=== PATIENT | female | born 1960 | race American Indian/Alaskan Native ===

== ENCOUNTER 2023-12-18 18:39 | Inpatient (IN) | payer MEDICAID ==
[~2023-12-18] VITALS: Ht 160 cm; Wt 59.1 kg
[~2023-12-18 18:39] MED LIST: ALBU18HF2 INH; AMPH30TA3 PO; EPIN0.3P8 IM; FLUT1DIS4 INH; HYDR25TA4 PO; PRIM250T8 CORPAK; PRIM50TA PO
[2023-12-18] MEDS: metoclopramide 5 mg/ml inj IV ONE (19:32)
[2023-12-18] MEDS: normal saline 1000ml 1,000 ML IV ONE (21:09)
[2023-12-18 21:31] LABS: BASOPHILS % (AUTO) 0.5 % (0-1); EOSINOPHILS # (AUTO) 0.1 X10'3 (0-0.9); EOSINOPHILS % (AUTO) 1.2 % (0-6); HEMATOCRIT 45.9 % (35.0-45.0); HEMOGLOBIN 15.8 g/dl (12.0-16.0); LYMPHOCYTES # (AUTO) 2.9 X10'3 (1.1-4.8); LYMPHOCYTES % (AUTO) 32.1 % (21-51); MEAN CORPUSCULAR HEMOGLOBIN 33.5 PG (27.0-31.0); MEAN CORPUSCULAR HGB CONC 34.4 g/dL (33.0-36.5); MEAN CORPUSCULAR VOLUME 97.3 FL (78-98); MEAN PLATELET VOLUME 9.7 FL (7.4-10.4); MONOCYTES # (AUTO) 0.8 X10'3 (0-0.9); MONOCYTES % (AUTO) 8.6 % (2-12); NEUTROPHILS # (AUTO) 5.3 X10'3 (1.8-7.7); NEUTROPHILS % (AUTO) 57.6 % (42-75); PLATELET COUNT 156 X10'3 (140-440); RED BLOOD COUNT 4.72 X10'6 (4.20-5.60); RED CELL DISTRIBUTION WIDTH 15.6 % (11.5-14.5); WHITE BLOOD COUNT 9.1 X10'3 (4.5-11.0)
[2023-12-18 21:40] LABS: APTT 27 SECONDS (22-32); PROTHROMBIN TIME 10.6 SECONDS (9.0-12.0)
[2023-12-18] MEDS ORDERED: ONDA-245 PO (21:46)
[2023-12-18] MEDS ORDERED: LIDO1ADH67 TOP (21:46)
[2023-12-18] MEDS ORDERED: LINA145C PO (21:46)
[2023-12-18] MEDS ORDERED: SENN-137 PO (21:46)
[2023-12-18] MEDS ORDERED: CILO100T3 PO (21:46)
[2023-12-18] MEDS ORDERED: PREG150C47 PO (21:46)
[2023-12-18] MEDS ORDERED: NICO4GUM29 PO (21:46)
[2023-12-18] MEDS ORDERED: DOCU-392 PO (21:46)
[2023-12-18] MEDS ORDERED: CYCL-1 PO (21:46)
[2023-12-18] MEDS ORDERED: [UNRECOGNIZED DRUG - CODE] PO (21:46)
[2023-12-18 21:51] LABS: ALBUMIN 3.1 G/DL (3.4-5.0); ANION GAP 12 (8-16); BLOOD UREA NITROGEN 7 MG/DL (7-18); BUN/CREATININE RATIO 9.2 (10.0-20.0); CALCIUM 8.4 MG/DL (8.5-10.1); CHLORIDE 105 MMOL/L (99-107); CREATININE 0.76 MG/DL (0.40-0.90); GLUCOSE 87 MG/DL (70-104); MAGNESIUM 2.3 MG/DL (1.5-2.4); POTASSIUM 3.5 MMOL/L (3.5-5.1); PRO BRAIN NATRIURETIC PEPTIDE 678 PG/ML (0-125); SODIUM 139 MMOL/L (135-145); TOTAL CARBON DIOXIDE 21.9 MMOL/L (24-32); eCRCL 63 ML/MIN; eGFR 77 ML/MIN
[2023-12-18 21:56] LABS: BILIRUBIN,URINE NEGATIVE (Neg); CLARITY,URINE CLEAR (Clear); COLOR,URINE YELLOW (Yellow); GLUCOSE, URINE NEGATIVE (Neg); KETONES,URINE NEGATIVE (Neg); LEUKOCYTE ESTERASE ,URINE NEGATIVE (Neg); NITRITES, URINE NEGATIVE (Neg); OCCULT BLOOD,URINE NEGATIVE (Neg); PH,URINE 5.5 (4.8-8.0); PROTEIN,URINE NEGATIVE (Neg); UROBILINOGEN,URINE 0.2 E.U/dL (0.2-1.0)
[2023-12-18 21:57] LABS: UA COLLECTION TYPE CLN CATCH MIDSTREAM
[2023-12-18] MEDS ORDERED: morphine 2 MG/ML inj. syringe IV PRN (22:20)
[2023-12-18] MEDS ORDERED: acetaminophen 325mg tablet PO PRN (22:20)
[2023-12-18] MEDS ORDERED: magnesium sulf-water 4G/100mL 100 ML IV PRN (22:20)
[2023-12-18] MEDS ORDERED: haloperidol lactate 5mg/ml inj IM PRN (22:20)
[2023-12-18] MEDS ORDERED: mag hydrox/Alum hydrox/simeth 30ml oral suspension PO PRN (22:20)
[2023-12-18] MEDS ORDERED: LORazepam 2 mg/ml vial IV PRN (22:20)
[2023-12-18] MEDS ORDERED: magnesium sulf-water 2g/50mL 50 ML IV PRN (22:20)
[2023-12-18] MEDS ORDERED: PERFLUTREN PROTEIN-A MICROSPHR (Optison) 0.22 MG/ML 3ML VIAL IV PRN (22:20)
[2023-12-18] MEDS ORDERED: magnesium Cl slow-release 64mg tablet PO PRN (22:20)
[2023-12-18] MEDS ORDERED: potassium Cl 40MEQ/1/2NS 520ml 520 ML IV PRN (22:20)
[2023-12-18] MEDS ORDERED: ondansetron/PF 4mg/2ml inj IV PRN (22:20)
[2023-12-18] MEDS ORDERED: potassium Cl 20 mEq SR tablet PO PRN (22:20)
[2023-12-18] MEDS ORDERED: HYDROcodone/acetaminophen 5mg/325mg tablet PO PRN (22:20)
[2023-12-18] MEDS ORDERED: magnesium hydroxide 30ml (MOM) UD suspension PO PRN (22:20)
[2023-12-18] MEDS ORDERED: dextrose 50%-water 50ml dispensing syringe IV PRN (22:20)
[2023-12-18] MEDS: nicotine 14mg patch - 24hr TD ONE (22:48)
[2023-12-18] MEDS: pregabalin 75mg capsule PO ONE (22:48)
[2023-12-18] MEDS: QUEtiapine 25mg tablet PO ONE (22:48)
[2023-12-18 22:58] LABS: ALANINE AMINOTRANSFERASE 28 U/L (12-78); ALBUMIN 3.1 G/DL (3.4-5.0); ALBUMIN/GLOBULIN RATIO 0.9 (1.1-1.5); ALKALINE PHOSPHATASE 75 IU/L (46-116); ASPARTATE AMINO TRANSFERASE 21 U/L (10-37); BILIRUBIN,DIRECT 0.1 MG/DL (0-0.3); BILIRUBIN,TOTAL 0.3 MG/DL (0.1-1.0); TOTAL PROTEIN 6.5 G/DL (6.4-8.2)
[2023-12-19] VITALS (15 sets, daily range): BP systolic 106–134; BP diastolic 63–85; PULSE 87–117; RESP 16–18; TEMP 97.8–98.7; O2SAT 95–100
[2023-12-19 00:33] LABS: CHOL/HDL RATIO 3.3 (0.00-4.99); CHOLESTEROL 221 MG/DL (0-200); HDL CHOLESTEROL 67 MG/DL (35-60); LDL CHOLESTEROL 127 MG/DL (50-100); TRIGLYCERIDES 196 MG/DL (20-135)
[2023-12-19] MEDS ORDERED: nitroGLYCERIN 0.4mg SUBLingual tab SL PRN (01:10)
[2023-12-19] MEDS ORDERED: metoprolol tartrate 1mg/ml inj IV PRN (01:10)
[2023-12-19] MEDS ORDERED: aminophylline 250mg/10ml inj. IV PRN (01:10)
[2023-12-19] MEDS ORDERED: docusate sod 100mg capsule PO PRN (01:25)
[2023-12-19 02:53] LABS: BASOPHILS # (AUTO) 0.1 X10'3 (0-0.2); BASOPHILS % (AUTO) 0.8 % (0-1); EOSINOPHILS # (AUTO) 0.1 X10'3 (0-0.9); EOSINOPHILS % (AUTO) 1.5 % (0-6); HEMATOCRIT 42.8 % (35.0-45.0); HEMOGLOBIN 14.5 g/dl (12.0-16.0); LYMPHOCYTES # (AUTO) 2.7 X10'3 (1.1-4.8); MEAN CORPUSCULAR HEMOGLOBIN 32.4 PG (27.0-31.0); MEAN CORPUSCULAR HGB CONC 33.7 g/dL (33.0-36.5); MEAN CORPUSCULAR VOLUME 96.2 FL (78-98); MEAN PLATELET VOLUME 9.2 FL (7.4-10.4); MONOCYTES # (AUTO) 0.6 X10'3 (0-0.9); MONOCYTES % (AUTO) 7.9 % (2-12); NEUTROPHILS # (AUTO) 3.6 X10'3 (1.8-7.7); NEUTROPHILS % (AUTO) 51.8 % (42-75); PLATELET COUNT 139 X10'3 (140-440); RED BLOOD COUNT 4.46 X10'6 (4.20-5.60); RED CELL DISTRIBUTION WIDTH 15.6 % (11.5-14.5)
[2023-12-19] MEDS: nicotine prolacrilex 4mg gum BC SCH (03:00)
[2023-12-19 03:11] LABS: ALBUMIN 2.8 G/DL (3.4-5.0); ANION GAP 6 (8-16); BLOOD UREA NITROGEN 8 MG/DL (7-18); CHLORIDE 108 MMOL/L (99-107); CHOL/HDL RATIO 3.4 (0.00-4.99); CHOLESTEROL 213 MG/DL (0-200); CREATININE 0.73 MG/DL (0.40-0.90); GLUCOSE 114 MG/DL (70-104); HDL CHOLESTEROL 63 MG/DL (35-60); LDL CHOLESTEROL 119 MG/DL (50-100); MAGNESIUM 2.1 MG/DL (1.5-2.4); POTASSIUM 3.4 MMOL/L (3.5-5.1); SODIUM 139 MMOL/L (135-145); TRIGLYCERIDES 128 MG/DL (20-135); eCRCL 65 ML/MIN; eGFR 81 ML/MIN
[2023-12-19] MEDS: cilostazol 50mg tablet PO SCH (07:00)
[2023-12-19] MEDS: thiamine 100mg/ml 2ml inj. IV SCH (08:00)
[2023-12-19] MEDS: aspirin 81mg, enteric-coated 1 TAB TABLET.DR PO SCH (08:00)
[2023-12-19] MEDS: K and/or MAG REPLACEMENT MC SCH (08:00)
[2023-12-19] MEDS: LINACLOTIDE PO SCH (08:00)
[2023-12-19] MEDS: cyclobenzaprine 10mg tablet PO SCH (08:00)
[2023-12-19] MEDS: docusate sod 100mg capsule PO SCH (08:00)
[2023-12-19] MEDS: regadenoson 0.4mg/5ml syringe IV PRN (09:23)
[2023-12-19 11:25] LABS: CREATINE KINASE 62 U/L (26-192); LIPASE 32 U/L (16-77); PHOSPHORUS 3.7 MG/DL (2.3-4.5)
[2023-12-19] MEDS: pregabalin 75mg capsule PO SCH (13:11)
[2023-12-19] MEDS: folic acid 1mg/0.2ml inj IV SCH (13:11)
[2023-12-19] MEDS: sennosides/docusate sodium tablet PO SCH (13:11)
[2023-12-19] MEDS: nicotine 14mg patch - 24hr TD ONE (14:41)
[2023-12-19] MEDS: LORazepam 2 mg/ml vial IV PRN (14:41)
[2023-12-19] MEDS: potassium Cl 20 mEq SR tablet PO PRN (16:24)
[2023-12-19] MEDS: atorvastatin 20mg tablet PO SCH (19:11)
[2023-12-20] VITALS (11 sets, daily range): BP systolic 95–119; BP diastolic 53–80; PULSE 96–111; RESP 14–16; TEMP 97.8–98; O2SAT 96–98
[2023-12-20 07:51] LABS: ALBUMIN 2.8 G/DL (3.4-5.0); ANION GAP 7 (8-16); BLOOD UREA NITROGEN 12 MG/DL (7-18); BUN/CREATININE RATIO 15.4 (10.0-20.0); CALCIUM 9.1 MG/DL (8.5-10.1); CHLORIDE 104 MMOL/L (99-107); CREATININE 0.78 MG/DL (0.40-0.90); GLUCOSE 165 MG/DL (70-104); MAGNESIUM 2.1 MG/DL (1.5-2.4); POTASSIUM 4.2 MMOL/L (3.5-5.1); SODIUM 138 MMOL/L (135-145); TOTAL CARBON DIOXIDE 26.6 MMOL/L (24-32); eCRCL 61 ML/MIN; eGFR 75 ML/MIN
[2023-12-20] MEDS: ipratropium/albuterol 3ml nebule NEB PRN (08:30)
[2023-12-20] MEDS ORDERED: heparin 1,000unit/ml 10ml vial 10 ML ONE (08:36)
[2023-12-20] MEDS ORDERED: midazolam 1 mg/ML 2ml injection ONE (08:36)
[2023-12-20] MEDS ORDERED: verapamil 2.5 mg/ml inj IV ONE ×2 (08:36→09:39)
[2023-12-20] MEDS ORDERED: iohexol 350 MG/ML 50ML vial IV ONE (08:36)
[2023-12-20] MEDS ORDERED: LIDOcaine 1% (10mg/ml) 2ml vial ONE (08:36)
[2023-12-20] MEDS ORDERED: fentaNYL/PF 50MCG/1 ML 2ML syringe ONE (08:36)
[2023-12-20] MEDS ORDERED: iohexol 350MG/ML 100ml bottle IV ONE ×2 (08:37→10:19)
[2023-12-20] MEDS ORDERED: nitroGLYCERIN 500mcg/5mL D5W 5 ML IV ONE ×2 (08:42→10:25)
[2023-12-20 09:11] LABS: BASOPHILS # (AUTO) 0.1 X10'3 (0-0.2); BASOPHILS % (AUTO) 0.6 % (0-1); EOSINOPHILS # (AUTO) 0.1 X10'3 (0-0.9); EOSINOPHILS % (AUTO) 1.1 % (0-6); HEMATOCRIT 46.9 % (35.0-45.0); HEMOGLOBIN 15.7 g/dl (12.0-16.0); LYMPHOCYTES # (AUTO) 2.6 X10'3 (1.1-4.8); LYMPHOCYTES % (AUTO) 29.6 % (21-51); MEAN CORPUSCULAR HEMOGLOBIN 32.2 PG (27.0-31.0); MEAN CORPUSCULAR HGB CONC 33.6 g/dL (33.0-36.5); MEAN CORPUSCULAR VOLUME 95.9 FL (78-98); MONOCYTES # (AUTO) 0.6 X10'3 (0-0.9); NEUTROPHILS # (AUTO) 5.4 X10'3 (1.8-7.7); NEUTROPHILS % (AUTO) 61.7 % (42-75); PLATELET COUNT 146 X10'3 (140-440); RED BLOOD COUNT 4.89 X10'6 (4.20-5.60); RED CELL DISTRIBUTION WIDTH 15.7 % (11.5-14.5); WHITE BLOOD COUNT 8.7 X10'3 (4.5-11.0)
[2023-12-20] MEDS ORDERED: heparin 25,000 UNIT/250ml bag 250 ML IV ONE (10:13)
[2023-12-20] MEDS ORDERED: clopidogrel 300mg tablet ONE (10:36)
[2023-12-20] MEDS ORDERED: aspirin 325mg tablet ONE (10:38)
[2023-12-20] MEDS ORDERED: CLOP-32 PO (14:19)
[2023-12-20] MEDS ORDERED: ATOR20TA66 PO (14:19)
[2023-12-20] MEDS ORDERED: ASPI81TA52 PO (14:19)
[2023-12-21] MEDS ORDERED: clopidogrel 75mg tablet PO SCH (08:00)
[2023-12-21] MEDS ORDERED: aspirin 81mg tab.chew PO SCH (08:30)
[2023-12-23] MEDS ORDERED: thiamine 100mg tablet PO SCH (08:00)
[2023-12-23] MEDS ORDERED: folic acid 1mg tablet PO SCH (08:00)
== END 2023-12-20 14:30 | disposition left against medical advice (07) | DRG 175 ==
LOC: ER 18:40 → ED HOLD 22:55 → ORTHO 4S 12-19 08:44
PROVIDERS: ADMIT Internal Medicine Pulmonary Disease; ATTEND Family Medicine
PROC: 027034Z Dilation of Coronary Artery, One Artery with Drug-eluting Intraluminal Device, Percutaneous Approach (ICD-10-PCS; principal; 2023-12-20)
PROC: 4A023N7 Measurement of Cardiac Sampling and Pressure, Left Heart, Percutaneous Approach (ICD-10-PCS; 2023-12-20)
PROC: B2111ZZ Fluoroscopy of Multiple Coronary Arteries using Low Osmolar Contrast (ICD-10-PCS; 2023-12-20)
PROC: B4101ZZ Fluoroscopy of Abdominal Aorta using Low Osmolar Contrast (ICD-10-PCS; 2023-12-20)
PROC: B2151ZZ Fluoroscopy of Left Heart using Low Osmolar Contrast (ICD-10-PCS; 2023-12-20)
DX: I25.110 Atherosclerotic heart disease of native coronary artery with unstable angina pectoris (principal); E78.5 Hyperlipidemia, unspecified; F10.10 Alcohol abuse, uncomplicated; G25.0 Essential tremor; I10 Essential (primary) hypertension; I73.9 Peripheral vascular disease, unspecified; J44.9 Chronic obstructive pulmonary disease, unspecified; Z53.29 Procedure and treatment not carried out because of patient's decision for other reasons; Z66 Do not resuscitate; F32.A Depression, unspecified; F17.210 Nicotine dependence, cigarettes, uncomplicated; F41.9 Anxiety disorder, unspecified; G89.29 Other chronic pain; Z88.0 Allergy status to penicillin; Z80.1 Family history of malignant neoplasm of trachea, bronchus and lung; Z82.3 Family history of stroke; Z95.5 Presence of coronary angioplasty implant and graft; Z88.1 Allergy status to other antibiotic agents
CPT/HCPCS: 36415; 70450; 71045; 75625; 76937; 78452; 80048; 80061; 80076; 81003; 82550; 82948; 83690; 83735; 83880; 84100; 84443; 84484; 85025; 85347; 85610; 85730; 87081; 93005; 93017; 93306; 93458; 94640; 94760; 97161; 97530; 99152; 99153; 99285; A6258; A6449; A9500; C1725; C1751; C1769; C1874; C1894; C9600; G0378; J1644; J2003; J2060; J2250; J2765; J2785; J3010; J3411; J3490; J7030; Q9967

== ENCOUNTER 2024-01-29 11:44 | Emergency (ER) | payer MEDICAID ==
[~2024-01-29] VITALS: Ht 165.1 cm; Wt 70.5 kg
[~2024-01-29 11:44] MED LIST changes: -ALBU18HF2 INH; -AMPH30TA3 PO; +ATOR20TA66 PO; +CILO100T3 PO; +CLOP-32 PO; +CYCL-1 PO; +DOCU-392 PO; -EPIN0.3P8 IM; -FLUT1DIS4 INH; -HYDR25TA4 PO; +LIDO1ADH67 TOP; +LINA145C PO; +NICO4GUM29 PO; +ONDA-245 PO; +PREG150C47 PO; -PRIM250T8 CORPAK; -PRIM50TA PO; +[UNRECOGNIZED DRUG - CODE] PO; +[UNRECOGNIZED DRUG - CODE] PO
[2024-01-29 11:54] VITALS: TEMP 98.5
[2024-01-29 12:46] LABS: EOSINOPHILS # (AUTO) 0.1 X10'3 (0-0.9); MONOCYTES # (AUTO) 0.5 X10'3 (0-0.9)
[2024-01-29 12:49] LABS: BASOPHILS # (AUTO) 0.1 X10'3 (0-0.2); BASOPHILS % (AUTO) 0.6 % (0-1); EOSINOPHILS % (AUTO) 0.6 % (0-6); HEMATOCRIT 39.5 % (35.0-45.0); HEMOGLOBIN 13.5 g/dl (12.0-16.0); LYMPHOCYTES # (AUTO) 1.1 X10'3 (1.1-4.8); LYMPHOCYTES % (AUTO) 10.7 % (21-51); MEAN CORPUSCULAR HEMOGLOBIN 32.8 PG (27.0-31.0); MEAN CORPUSCULAR HGB CONC 34.1 g/dL (33.0-36.5); MEAN CORPUSCULAR VOLUME 96.4 FL (78-98); MEAN PLATELET VOLUME 8.9 FL (7.4-10.4); MONOCYTES % (AUTO) 4.9 % (2-12); NEUTROPHILS # (AUTO) 8.3 X10'3 (1.8-7.7); NEUTROPHILS % (AUTO) 83.2 % (42-75); PLATELET COUNT 222 X10'3 (140-440); RED CELL DISTRIBUTION WIDTH 13.7 % (11.5-14.5); WHITE BLOOD COUNT 9.9 X10'3 (4.5-11.0)
[2024-01-29 13:05] LABS: ALANINE AMINOTRANSFERASE 23 U/L (12-78); ALBUMIN 3.7 G/DL (3.4-5.0); ALBUMIN/GLOBULIN RATIO 0.8 (1.1-1.5); ALKALINE PHOSPHATASE 131 IU/L (46-116); ANION GAP 10 (8-16); ASPARTATE AMINO TRANSFERASE 14 U/L (10-37); BILIRUBIN,TOTAL 0.5 MG/DL (0.1-1.0); BLOOD UREA NITROGEN 6 MG/DL (7-18); BUN/CREATININE RATIO 6.5 (10.0-20.0); CALCIUM 8.8 MG/DL (8.5-10.1); CHLORIDE 103 MMOL/L (99-107); CREATININE 0.92 MG/DL (0.40-0.90); GLUCOSE 241 MG/DL (70-104); POTASSIUM 3.8 MMOL/L (3.5-5.1); SODIUM 139 MMOL/L (135-145); TOTAL CARBON DIOXIDE 25.7 MMOL/L (24-32); TOTAL PROTEIN 8.2 G/DL (6.4-8.2); eCRCL 56 ML/MIN; eGFR 62 ML/MIN
[2024-01-29 14:48] LABS: BILIRUBIN,URINE NEGATIVE (Neg); CLARITY,URINE CLOUDY (Clear); COLOR,URINE YELLOW (Yellow); GLUCOSE, URINE 500 mg/dl (Neg); KETONES,URINE NEGATIVE (Neg); LEUKOCYTE ESTERASE ,URINE NEGATIVE (Neg); NITRITES, URINE NEGATIVE (Neg); OCCULT BLOOD,URINE NEGATIVE (Neg); PROTEIN,URINE NEGATIVE (Neg); UROBILINOGEN,URINE 0.2 E.U/dL (0.2-1.0)
[2024-01-29 14:53] LABS: UA COLLECTION TYPE NON-SPECIFIED
[2024-01-29 14:55] LABS: BACTERIA,URINE 4+ /HPF (Neg); MUCUS STRANDS MANY /LPF (Neg); RBC,URINE NONE SEEN /HPF (0-2); SQUAMOUS EPITHELIAL CELL,UR MANY /LPF (FEW); WBC,URINE 0-4 /HPF (0-4)
[2024-01-29 15:13] LABS: URINE AMPHETAMINE SCREEN NEGATIVE (Neg); URINE BARBITUATE SCREEN NEGATIVE (Neg); URINE BENZODIAZEPINES SCREEN NEGATIVE (Neg); URINE CANNABINOID SCREEN POSITIVE (Neg); URINE COCAINE SCREEN NEGATIVE (Neg); URINE METHADONE SCREEN NEGATIVE (Neg); URINE OPIATE SCREEN NEGATIVE (Neg); URINE PHENCYCLIDINE SCREEN NEGATIVE (Neg)
[2024-01-29 16:07] VITALS: BP 102/62; PULSE 111; RESP 17; O2SAT 96
== END 2024-01-29 16:05 | disposition home or self-care (01) ==
LOC: ER 11:45
DX: R06.02 Shortness of breath (principal); E78.00 Pure hypercholesterolemia, unspecified; I10 Essential (primary) hypertension; J44.9 Chronic obstructive pulmonary disease, unspecified; M19.90 Unspecified osteoarthritis, unspecified site; Z88.0 Allergy status to penicillin; Z95.5 Presence of coronary angioplasty implant and graft; Z20.822 Contact with and (suspected) exposure to COVID-19
CPT/HCPCS: 36415; 71045; 80053; 80305; 81001; 83880; 84484; 85025; 87502; 87503; 87811; 93005; 99285

== ENCOUNTER → 2024-02-23 | Day surgery (SDC) | payer MEDICAID ==
[2024-02-22 13:04] LABS: BASOPHILS % (AUTO) 0.5 % (0-1); EOSINOPHILS # (AUTO) 0.1 X10'3 (0-0.9); EOSINOPHILS % (AUTO) 1.7 % (0-6); HEMATOCRIT 39.6 % (35.0-45.0); HEMOGLOBIN 13.7 g/dl (12.0-16.0); LYMPHOCYTES # (AUTO) 1.6 X10'3 (1.1-4.8); MEAN CORPUSCULAR HGB CONC 34.7 g/dL (33.0-36.5); MEAN CORPUSCULAR VOLUME 95.2 FL (78-98); MEAN PLATELET VOLUME 9.1 FL (7.4-10.4); MONOCYTES # (AUTO) 0.6 X10'3 (0-0.9); MONOCYTES % (AUTO) 7.9 % (2-12); NEUTROPHILS # (AUTO) 5.3 X10'3 (1.8-7.7); NEUTROPHILS % (AUTO) 68.9 % (42-75); PLATELET COUNT 244 X10'3 (140-440); RED BLOOD COUNT 4.16 X10'6 (4.20-5.60); RED CELL DISTRIBUTION WIDTH 13.2 % (11.5-14.5); WHITE BLOOD COUNT 7.6 X10'3 (4.5-11.0)
[2024-02-22 13:16] LABS: ALBUMIN 3.2 G/DL (3.4-5.0); TOTAL CARBON DIOXIDE 27.3 MMOL/L (24-32)
[2024-02-22 13:28] LABS: ANION GAP 9 (8-16); BLOOD UREA NITROGEN 6 MG/DL (7-18); BUN/CREATININE RATIO 6.1 (10.0-20.0); CHLORIDE 99 MMOL/L (99-107); CREATININE 0.98 MG/DL (0.40-0.90); GLUCOSE 227 MG/DL (70-104); POTASSIUM 4.4 MMOL/L (3.5-5.1); SODIUM 135 MMOL/L (135-145); eGFR 57 ML/MIN
[2024-02-22 13:57] LABS: APTT 26 SECONDS (22-32)
[2024-02-22 13:58] LABS: PROTHROMBIN TIME 10.3 SECONDS (9.0-12.0)
[2024-02-23] VITALS (13 sets, daily range): BP systolic 98–136; BP diastolic 55–85; PULSE 92–102; RESP 10–14; TEMP 99; O2SAT 93–99
[~2024-02-23] VITALS: Ht 160 cm; Wt 64.5 kg
[~2024-02-23] MED LIST changes: +ASPI-1397 PO; +ASPI81TA52 PO; +ATOR40TA71 PO; +CLOP75TA34 PO; +LIDOcaine 1% (10mg/ml) 2ml vial ONE; +NICO-631 TOP; +PANT20TA18 PO; +ROSU40TA PO; +aspirin 325mg tablet ONE; +aspirin 325mg tablet PO ONE; +aspirin 81mg tab.chew PO SCH; +clopidogrel 300mg tablet ONE; +clopidogrel 75mg tablet PO SCH; +diphenhydrAMINE 50 mg/ml inj ONE; +fentaNYL/PF 50MCG/1 ML 2ML syringe ONE; +heparin 1,000 UNITS/NS 500ml 500 ML ONE; +heparin 1,000unit/ml 10ml vial 10 ML ONE; +heparin 25,000 UNIT/250ml bag 250 ML IV ONE; +iohexol 350 MG/ML 50ML vial IV ONE; +iohexol 350MG/ML 100ml bottle IV ONE; +midazolam 1 mg/ML 2ml injection ONE; +nitroGLYCERIN 500mcg/5mL D5W 5 ML IV ONE; +normal saline 1000ml 1,000 ML IV SCH; +verapamil 2.5 mg/ml inj IV ONE
[2024-02-23] MEDS: LORazepam 0.5 MG tablet PO PRN (08:33)
[2024-02-23] MEDS: diphenhydrAMINE 25mg capsule PO PRN (08:33)
[2024-02-23] MEDS: normal saline 1,000 ML IV SCH (08:33)
[2024-02-23] MEDS: pregabalin 75mg capsule PO ONE (15:01)
== END | disposition home or self-care (01) ==
LOC: SSTAY O 06:51
PROVIDERS: ATTEND Internal Medicine Cardiovascular Disease
DX: I25.110 Atherosclerotic heart disease of native coronary artery with unstable angina pectoris (principal); I10 Essential (primary) hypertension; E78.5 Hyperlipidemia, unspecified; J44.9 Chronic obstructive pulmonary disease, unspecified; I73.9 Peripheral vascular disease, unspecified; Z95.5 Presence of coronary angioplasty implant and graft; Z87.891 Personal history of nicotine dependence; Z98.891 History of uterine scar from previous surgery; Z98.890 Other specified postprocedural states; Z79.899 Other long term (current) drug therapy; Z79.82 Long term (current) use of aspirin; Z82.49 Family history of ischemic heart disease and other diseases of the circulatory system; Z82.3 Family history of stroke; Z80.1 Family history of malignant neoplasm of trachea, bronchus and lung; Z79.01 Long term (current) use of anticoagulants; Z86.73 Personal history of transient ischemic attack (TIA), and cerebral infarction without residual deficits; Z98.49 Cataract extraction status, unspecified eye; Z80.9 Family history of malignant neoplasm, unspecified
CPT/HCPCS: 80048; 85025; 85347; 85610; 85730; 93005; A6258; C1874; C9600; J1200; J1644; J2003; J2250; J3010; J3490; J7030; Q0163; Q9967; 76937; 99152; 99153; A6402; C1725; C1751; C1769; C1894

== ENCOUNTER 2024-09-20 23:14 | Emergency (ER) | payer MEDICAID ==
[~2024-09-20] VITALS: Ht 165.1 cm; Wt 62.8 kg
[~2024-09-20 23:14] MED LIST changes: -ATOR20TA66 PO; -CLOP-32 PO; -CYCL-1 PO; -LIDOcaine 1% (10mg/ml) 2ml vial ONE; -NICO4GUM29 PO; -[UNRECOGNIZED DRUG - CODE] PO; -aspirin 325mg tablet ONE; -aspirin 325mg tablet PO ONE; -aspirin 81mg tab.chew PO SCH; -clopidogrel 300mg tablet ONE; -clopidogrel 75mg tablet PO SCH; -diphenhydrAMINE 50 mg/ml inj ONE; -fentaNYL/PF 50MCG/1 ML 2ML syringe ONE; -heparin 1,000 UNITS/NS 500ml 500 ML ONE; -heparin 1,000unit/ml 10ml vial 10 ML ONE; -heparin 25,000 UNIT/250ml bag 250 ML IV ONE; -iohexol 350 MG/ML 50ML vial IV ONE; -iohexol 350MG/ML 100ml bottle IV ONE; -midazolam 1 mg/ML 2ml injection ONE; -nitroGLYCERIN 500mcg/5mL D5W 5 ML IV ONE; -normal saline 1000ml 1,000 ML IV SCH; -verapamil 2.5 mg/ml inj IV ONE
--- NOTE | 2024-09-20 23:21 | Physician Documentation ---
History of Present Illness ~ Chief Complaint: Stroke Alert Stated Complaint: STROKE Time Seen by MD: 23:17 Primary Medical Doctor: Molly Serrano [facility] Patient presents to the emergency room for evaluation of vomiting facial droop slurred speech. Last time known normal was at 10:00 p.m. with symptom onset at 10:15 a.m. where found patient lying on the side of the bed. Positive facial droop and slurring of speech. Positive alcohol consumption however she reports no more than usual. Hematoma noted to left forehead. Train Planner equal. Patient covered in vomit Medication Reconciliation Allergies: Coded Allergies: Penicillins (Verified Allergy, Unknown, 01/29/24) varenicline (Verified Allergy, Unknown, nausea/ vomiting, 01/29/24) Scheduled Aspirin (Aspirin EC), 1 TAB PO DAILY, (Reported) Aspirin (Aspirin EC), 2 TAB PO DAILY Atorvastatin Calcium (Atorvastatin Calcium), 40 MG PO DAILY, (Reported) Cilostazol (Cilostazol), 1 TAB PO BID, (Reported) Clopidogrel Bisulfate (Clopidogrel), 1 TAB PO DAILY, (Reported) Clopidogrel Bisulfate (Clopidogrel), 1 TAB PO DAILY Docusate Sodium (Docusate Sodium), 1 CAP PO ONCE, (Reported) Lidocaine (Lidocaine Pain Relief), 1 PATCH TOP DAILY, (Reported) Linaclotide (Linzess), 1 CAP PO QAM, (Reported) Nicotine 14 MG Patch* (Habitrol 14 MG Patch*), 1 PATCH TOP DAILY, (Reported) Pantoprazole Sodium (Protonix), 1 TAB PO DAILY, (Reported) Pregabalin (Pregabalin), 1 CAP PO BID, (Reported) Rosuvastatin Calcium* (Crestor*), 1 TAB PO HS Sennosides/Docusate Sodium (Stimulant Laxative Plus Tablet), 2 TAB PO DAILY, (Re ported) Scheduled PRN Ondansetron 8mg ODT (Ondansetron Odt), 1 TAB PO BID PRN for nausea/vomiting, (Reported) Past Medical History Past Medical History: *CARDIOVASCULAR*, High Cholesterol, Hypertension, COPD, Arthritis, Chronic Pain, Osteoarthritis, Anxiety, Depression Past Surgical History: no surgical history Patient History: Patient reports no known family medical history. Drug Use: none Lives In: Home Review of Systems ROS All review of systems negative except as per HPI Physical Exam Vital Signs: Temperature: 98.7, Heart Rate: 97, Respiratory Rate: 20, BP: 182/97, Pulse Oximetry: 98, Weight: 62.800 General Appearance General: Patient is awake, alert, oriented x2. Emesis on her chest and neck Head: Normocephalic with 10 cm hematoma on left forehead Eyes: Conjunctival normal. EOMI. PERRL. ENT: Mucous membranes moist. Neck: Supple, trachea is midline. Chest: Clear to auscultation bilaterally without rales, rhonchi, or wheezes. There is no accessory muscle use or retractions. Cardiac: RRR without murmurs, gallops, or rubs. Abd: Soft, nondistended, nontender, with normoactive bowel sounds. No guarding, rebound, or rigidity. Extremities: Normal strength. Normal range of motion. No deformities or edema. Skin: Warm and dry with no significant rash appreciated. Neuro: Bilateral rn coronary care unit strength equal into both flexion and extension x4. Noted left facial droop. Procedures Procedures Intubation: . Patient with decreasing mentation and that has concern for possible deterioration in route during transfer therefore decision to intubate made. With Respiratory therapy at bedside rocuronium and etomidate were administered and concentrations of 70 mg and 10 mg. 3. Mac blade utilized along with 8. ET tube to intubate patient and ET tube seen passing through vocal cords. Good fogging, good color change and good bilateral breath sounds. Line secured in place at 22 cm at the gums. Patient tolerated procedure well without complication. Total time of procedure 5 minutes. Chest x-ray confirms placement. No pneumothorax. Progress Progress Note Patient's mentation is decreasing and I fear intermittent respiratory failure therefore decision to intubate made Received call from radiologist's stating that has a subarachnoid bleed Spoke with neurologist who recommended transfer and to keep blood pressures below 140. Current blood pressure is 133 Results/Orders Results/Orders Orders - DENNIS NICOLAS MD Electrocardiogram (09/20/24 23:17) BMP (09/20/24 23:17) Type And Screen (09/20/24 23:17) Urinalysis, Cult If Indicated (09/20/24 23:17) Chest,Single View (09/20/24 00:27) Ct Stroke Alert (09/20/24 23:17) * Vital Signs Routine* [id number] (09/20/24 23:17) * Blood Glucose Assessment * ONCE (09/20/24 23:17) * Npo Until Passed Bedside Swa (09/20/24 23:17) Nursing Swallow Screen (09/20/24 23:17) Ct Cervical Spine (09/20/24 23:21) Propofol 1000mg/100ml Bottle (Diprivan I (09/21/24 00:20) Triglycerides (09/22/24 03:00) Triglycerides (09/29/24 03:00) Triglycerides (10/06/24 03:00) Triglycerides (10/13/24 03:00) Triglycerides (10/20/24 03:00) Completed Orders - DENNIS NICOLAS MD Cbc/Diff (09/20/24 23:17) Pt Inr (09/20/24 23:17) PTT (09/20/24 23:17) Chest,Single View (09/20/24 00:27) Ct Stroke Alert (09/20/24 23:17) Iohexol 350mg/Ml 100ml (Omnipaque 350mg/ (09/20/24 23:18) Ct Cervical Spine (09/20/24 23:21) Etomidate Inj (Amidate Inj) (09/20/24 23:45) Rocuronium Inj. (Zemuron Inj) (09/20/24 23:45) Ondansetron Inj. (Zofran 4mg/2ml Vial) (09/21/24 00:00) Propofol 1000mg/100ml Bottle (Diprivan I (09/21/24 00:17) Medications Received in ER Medications (Trade) Dose Ordered Sig/Janie Route PRN Reason Start Time Stop Time Status Last Admin Dose Admin (Amidate inj) 10 mg ONCE ONCE IV 09/20/24 23:45 09/20/24 23:46 DC 09/21/24 00:14 10 MG (Zemuron inj) 70 mg ONCE ONCE IV 09/20/24 23:45 09/20/24 23:47 DC 09/21/24 00:14 50 MG (Zofran 4mg/2ml vial) 8 mg ONCE ONCE IV 09/21/24 00:00 09/21/24 00:05 DC 09/21/24 00:10 8 MG Propofol 100 ml @ 1.884 mls/ hr Q48H PRN IV sedation 09/21/24 00:20 09/21/24 00:24 1.884 MLS/HR Vital Signs 09/20/24 09/20/24 09/20/24 09/21/24 23:16 23:46 23:52 00:24 Temp 98.7 Pulse 97 98 Resp 20 18 20 B/P (MAP) 182/97 133/79 135/89 Pulse Ox 98 96 09/21/24 00:26 Pulse 102 Resp 16 Pulse Ox 99 O2 Delivery Ambu Bag O2 Flow Rate 16 FiO2 N/A Laboratory Tests Test 09/20/24 23:42 White Blood Count 10.0 Red Blood Count 4.59 Hemoglobin 11.1 L Hematocrit 35.1 Mean Corpuscular Volume 76.3 L Mean Corpuscular Hemoglobin 24.1 L Mean Corpuscular Hemoglobin Concent 31.6 L Red Cell Distribution Width 18.4 H Platelet Count 270 Mean Platelet Volume 8.8 Neutrophils (%) (Auto) 66.2 Lymphocytes (%) (Auto) 25.9 Monocytes (%) (Auto) 6.1 Eosinophils (%) (Auto) 1.0 Basophils (%) (Auto) 0.8 Neutrophils # (Auto) 6.6 Lymphocytes # (Auto) 2.6 Monocytes # (Auto) 0.6 Eosinophils # (Auto) 0.1 Basophils # (Auto) 0.1 CBC Comment Prothrombin Time 9.9 INR International Normalized Ratio 1.0 Activated Partial Thromboplast Time 23 Coagulation Comments Chemistry Comments EKG/XRAY/CT/US/VASC/MRI EKG : Additional Comment EKG interpreted by myself shows time of 04/27/2032, rate 96, sinus rhythm, normal axis, no ST changes CT : Impression Exam: CT STROKE ALERT CT CT STROKE ALERT INDICATION: facial droop COMPARISON: CT CT HEAD on DOS: 12/18/23 TECHNIQUE: CT of the head without intravenous contrast. RADIATION DOSE: CTDIvol: 48 mGy, DLP: 95 mGy*cm FINDINGS: Extensive diffuse subarachnoid hemorrhage is seen throughout the brain, most prominent in the suprasellar cistern.. Chronic encephalomalacia is seen in the right frontoparietal brain The visualized paranasal sinuses and mastoid air cells are clear. The surrounding soft tissues and osseous structures are unremarkable. IMPRESSION: 1. Extensive diffuse subarachnoid hemorrhage is seen throughout the brain, most prominent in the suprasellar cistern. 2. Critical findings discussed with Dr. Nicolas by Dr. Aguilar via phone on 09/20/2024 11:50 PM. Critical Findings: Stroke Alert Findings discussed with DENNIS NICOLAS at 09/21/2024 1:53 AM NEIGHBORHOOD AIDE, who acknowledged receipt and understanding of the findings. Exam: CT CERVICAL SPINE EXAM: CT CT CERVICAL SPINE INDICATION: neck pain s/p fall EXAM DATE: 09/20/2024 11:22 PM COMPARISON: CT CT HEAD on DOS: 12/18/23 TECHNIQUE: Multiple axial CT images of the cervical spine were obtained using bone algorithm. Axial and coronal reformatting was done. Bone and soft tissue windows were reviewed. Radiation Dose Information: CT Dose: CTDI volume is 23.29 mGy. Dose-length product is 560.73 mGy*cm FINDINGS: There is no acute displaced fracture. There is grade 1 anterolisthesis of C3 on C4. There are mild degenerative changes of the cervical spine characterized by endplate osteophytosis and intervertebral disc space narrowing. There is no CT evidence of high-grade spinal canal stenosis. Degenerative uncovertebral and facet hypertrophy contribute to mild multilevel neural foraminal narrowing. There is debris within the trachea and nonspecific ground-glass opacity at the lung apices. Please see separately dictated CT head for details of intracranial hemorrhage. IMPRESSION: 1. No acute displaced fracture. 2. Degenerative changes of the cervical spine as detailed. 3. Debris within the trachea nonspecific and ground-glass opacity within the lung apices. All CT scans at this medical facility are performed using dose modulation techniques as appropriate to a performed exam including the following: Automated exposure control was utilized; adjustment of the MA and/or KV according to patient size; and use of iterative reconstruction technique. Medical Decision Making Findings Patient presents to the emergency room with altered mental status and obvious trauma to her head with facial droop. Differentials include but are not limited to epidural bleed, subdural bleed, intraparenchymal bleed, stroke, alcohol intoxication therefore emergent labs and imaging indicated. Imaging shows subarachnoid hemorrhage and patient's mentation is decreasing therefore patient is intubated and we are transferring to [facility] who has neurosurgical capabilities. Departure Disposition: 51 HOSPICE/MEDICAL FACILITY Impression: Primary Impression: Subarachnoid hemorrhage Additional Impression: Altered mental status Condition: Critical Referrals: NO PRIMARY CARE PROVIDER (PCP) Critical Care Note Total Time (mins): 65 Critical Care Note The very real possibility of a deterioration of this patient's condition required the highest level of my preparedness for sudden, emergent intervention. I provided critical care services, which included medication orders, frequent reevaluations of the patient's condition and response to treatment, ordering and reviewing test results, and discussing the case with various consultants. Excludes time spent performing separately billable procedures. The critical care time associated with the care of the patient was 65 minutes not counting procedures. Signature Scribe Signature: No scribe Attestation: The note accurately reflects work and decisions made by me.Dennis Nicolas MD 09/20/24 23:57 DENNIS NICOLAS MD Sep 20, 2024 23:21
[2024-09-20] MEDS ORDERED: rocuronium 10mg/ml inj IV ONE (23:30)
[2024-09-20 23:51] LABS: MEAN PLATELET VOLUME 8.8 FL (7.4-10.4); RED CELL DISTRIBUTION WIDTH 18.4 % (11.5-14.5)
[2024-09-20 23:52] VITALS: TEMP 98.4
--- NOTE | 2024-09-20 23:56 | RADIOLOGY REPORT ---
CT CT STROKE ALERT INDICATION: facial droop COMPARISON: CT CT HEAD on DOS: 12/18/23 TECHNIQUE: CT of the head without intravenous contrast. RADIATION DOSE: CTDIvol: 48 mGy, DLP: 95 mGy*cm FINDINGS: Extensive diffuse subarachnoid hemorrhage is seen throughout the brain, most prominent in the suprase llar cistern.. Chronic encephalomalacia is seen in the right frontoparietal brain The visualized paranasal sinuses and mastoid air cells are clear. The surrounding soft tissues and osseous structures are unremarkable. IMPRESSION: 1. Extensive diffuse subarachnoid hemorrhage is seen throughout the brain, most prominent in the supr asellar cistern. 2. Critical findings discussed with Dr. Nicolas by Dr. Aguilar via phone on 09/20/2024 11:50 PM. Critical Findings: Stroke Alert Findings discussed with JACKIE NICOLAS at 09/21/2024 1:53 AM NATURAL RESOURCE TECHNICIAN, who acknowledged receipt and und erstanding of the findings.
--- NOTE | 2024-09-20 23:56 | RADIOLOGY REPORT ---
EXAM: CT CT CERVICAL SPINE INDICATION: neck pain s/p fall EXAM DATE: 09/20/2024 11:22 PM COMPARISON: CT CT HEAD on DOS: 12/18/23 TECHNIQUE: Multiple axial CT images of the cervical spine were obtained using bone algorithm. Axial a nd coronal reformatting was done. Bone and soft tissue windows were reviewed. Radiation Dose Information: CT Dose: CTDI volume is 23.29 mGy. Dose-length product is 560.73 mGy*cm FINDINGS: There is no acute displaced fracture. There is grade 1 anterolisthesis of C3 on C4. There are mild d egenerative changes of the cervical spine characterized by endplate osteophytosis and intervertebral disc space narrowing. There is no CT evidence of high-grade spinal canal stenosis. Degenerative uncov ertebral and facet hypertrophy contribute to mild multilevel neural foraminal narrowing. There is rodney ris within the trachea and nonspecific ground-glass opacity at the lung apices. Please see separately dictated CT head for details of intracranial hemorrhage. IMPRESSION: 1. No acute displaced fracture. 2. Degenerative changes of the cervical spine as detailed. 3. Debris within the trachea nonspecific and ground-glass opacity within the lung apices. All CT scans at this medical facility are performed using dose modulation techniques as appropriate t o a performed exam including the following: Automated exposure control was utilized; adjustment of th e MA and/or KV according to patient size; and use of iterative reconstruction technique.
--- NOTE | 2024-09-21 | [facility] CONSULT REPORT ---
[facility] Procedure Note [facility] Procedure Note Consult [facility] Note # Demographics Consult Type: Acute Stroke Level 1 (0-4.5 hrs) Patient Location: Emergency Room First Name: KRISTEN Last Name: XIOMY Date of : 1960 Age: 64 Gender: Female Facility: [facility] Time of Initial Page (): 09/20/2024 23:51 First Contact with Site (): 09/20/2024 23:51 # HPI History: Found at bedside by with facial droop Last Known Normal: 2200pst # Scores Time of exam and NIHSS (): 09/20/2024 23:54 Level of Consciousness 1a: [0] = Alert; keenly responsive LOC Questions 1b: [0] = Answers both questions correctly LOC Commands 1c: [0] = Performs both tasks correctly Best Gaze 2: [0] = Normal Visual 3: [0] = No visual loss Facial Palsy 4: [1] = Minor paralysis Motor Arm Left 5a: [0] = No drift Motor Arm Right 5b: [0] = No drift Motor Leg Left 6a: [0] = No drift Motor Leg Right 6b: [0] = No drift Limb Ataxia 7: [0] = Absent Sensory 8: [0] = Normal Best Language 9: [0] = No aphasia Dysarthria 10: [0] = Normal Extinction and Inattention 11: [0] = No abnormality NIHSS Total: 1 # Exam SBP: 133 # Data Head CT: - hemorrhage - per radiologist read SA # Assessment Impression: - Subarachnoid Hemorrhage # Plan Thrombolytic/Intervention: NOT IV Thrombolysis or IA Intervention candidate Thrombolytic Exclusion (< 3 hour window): - ICH Thrombolytic Exclusion (3-4.5 hour window): - ICH Blood Pressure Management: - nicardipine Target Blood Pressure: SBP < 140 Imaging: (urgency: STAT): - CT Angiogram Head and CT Angiogram Neck AND call back with results if abnormal Other: - If patient has any neurological deterioration please call me back immediately - consult neurosurgery - I have discussed my recommendations with the referring provider Additional Recommendations: Likely needing to transfer for Angiogram. Disposition: consider transfer to tertiary facility for higher level neurol ogical care # Logistics Attestation of consult completion: The patient is located at: [facility]. Facility staff participated in the visit. I performed this telemedicine visit from my offsite office utilizing interactive 2 way audio and visual telecommunication technology at the request of the onsite emergency room provider. Total time spent in telemedicine encounter: I spent 21 minutes reviewing clinical data and/or imaging, obtaining history, examining the patient, communicating with the onsite care team, and in preparation of this report. Critical Care time: 21 minutes of this encounter were critical care time. Due to a high probability of clinically significant, life-threatening neurologic deterioration, the patient required my highest level of preparedness to intervene emergently. I spent this critical care time managing the patient in conjunction with on-site providers who requested my consultation. In addition to the above, this critical care time included recommendation and review of studies, including imaging; arranging an urgent treatment and management plan with on-site providers; evaluation of patient's response to treatment; and documentation. This critical care time was performed to assess and manage the high probability of imminent, life-threatening deterioration that could result in neurologic catastrophe. # Demographics First Name: KRISTEN Last Name: XIOMY Facility: [facility] Electronically signed at 09/21/2024 00:00 ([place] Time) by Ronen Alcocer MD Neuro Consult Order placed for: Yes ZANE ALCOCER MD Sep 21, 2024 00:00
[2024-09-21] MEDS: ondansetron/PF 4mg/2ml inj IV ONE (00:10)
[2024-09-21] MEDS: etomidate 2mg/ml inj. IV ONE (00:14)
[2024-09-21] MEDS: rocuronium 10mg/ml inj IV ONE (00:14)
[2024-09-21] MEDS: propofol 1000mg/100ml bottle 100 ML IV ONE (00:21)
[2024-09-21 00:24] LABS: APTT 23 SECONDS (22-32); INR 1.0 INR
[2024-09-21] MEDS: propofol 1000mg/100ml bottle 100 ML IV PRN (00:24)
[2024-09-21 00:26] VITALS: PULSE 102; RESP 16; O2SAT 99
[2024-09-21 00:30] VITALS: BP 135/84; PULSE 104; RESP 16; O2SAT 98
--- NOTE | 2024-09-21 00:55 | RADIOLOGY REPORT ---
CHEST RADIOGRAPH Indication: Stroke Alert Technique: Single frontal view of the chest was obtained Comparison: DI CHEST,SINGLE VIEW on DOS: 01/29/24, DI CHEST,SINGLE VIEW on DOS: 12/18/23 FINDINGS: Lines and Tubes: endotracheal tube tip 1.3 cm above the villa ; consider 2 cm retraction. Lungs: No focal consolidation. Pleura: No effusion. No pneumothorax. Cardiomediastinal contours: Moderate cardiomegaly. Bones: No acute osseous abnormality. IMPRESSION: 1. endotracheal tube tip 1.3 cm above the villa ; consider 2 cm retraction. 2. Moderate cardiomegaly.
[2024-09-21 02:30] LABS: CREATININE 0.93 MG/DL (0.40-0.90); TOTAL CARBON DIOXIDE 17.4 MMOL/L (24-32); eCRCL 55 ML/MIN; eGFR 61 ML/MIN
--- NOTE | 2024-09-21 06:57 | ELECTROCARDIOGRAPH REPORT ---
[facility] Test Date: 2024-09-20 Test Time: 23:33:38 Pat Name: KRISTEN STAUFFER Department: EMERGENCY ROOM [id number] Room: Gender: F Wafer Cutter: : 1960 Requested By: JACKIE BECKER Order Number: [id number] Reading MD: Measurements Intervals [place] Rate: 96 P: 0 WV: 137 QRS: 44 QRSD: 104 T: -33 QT: 463 QTc: 586 Interpretive Statements Sinus rhythm RSR' in V1 or V2, right VCD or RVH Borderline T abnormalities, diffuse leads Prolonged QT interval Baseline wander in lead(s) V4 Please click the below link to view image of tracing.
== END 2024-09-21 00:40 | disposition hospice, inpatient (51) ==
LOC: ER 23:15
DX: I60.9 Nontraumatic subarachnoid hemorrhage, unspecified (principal); R41.82 Altered mental status, unspecified; E78.00 Pure hypercholesterolemia, unspecified; I10 Essential (primary) hypertension; F41.9 Anxiety disorder, unspecified; F32.A Depression, unspecified; J44.9 Chronic obstructive pulmonary disease, unspecified; Z88.0 Allergy status to penicillin
CPT/HCPCS: 31500; 36415; 70450; 71045; 72125; 80048; 85025; 85610; 85730; 86885; 86900; 86901; 93005; 96365; 96375; 99291; J2405; J2704; J3490; Q9967